=== PATIENT | male | born 1970 | race Caucasian/White ===

== ENCOUNTER → 2017-12-26 | Outpatient (CLI) | payer BC, OTHER ==
--- NOTE | 2017-12-26 10:34 | DIAGNOSTIC IMAGING REPORT ---
LEFT KNEE 4 VIEWS, 3 VIEWS OF THE RIGHT KNEE FOR COMPARISON CLINICAL HISTORY: LEFT KNEE INJURY COMPARISON STUDY: Left knee 04/23/2008. FINDINGS: No fracture or dislocation within the right or left knee. Prior graft repair of the left ACL. The hardware appears intact. Cartilage spaces are maintained. Soft tissues are unremarkable. Small left knee effusion. Tiny marginal osteophytes at the patella. IMPRESSION: 1. Small left knee effusion. 2. Postoperative changes within the left knee consistent with prior ACL repair. The hardware appears intact. Electronically signed by: Jd Brink M.D. 12/26/2017 10:33 AM Dictated Date/Time: 12/26/2017 10:30 AM
== END | disposition home or self-care (01) ==
LOC: C.RDSM 10:00
PROVIDERS: ATTEND Physician Assistant
DX: S89.92XA Unspecified injury of left lower leg, initial encounter (principal); X58.XXXA Exposure to other specified factors, initial encounter; M25.462 Effusion, left knee